=== PATIENT | female | born 1955 | race Caucasian/White ===

== ENCOUNTER 2016-10-05 09:03 | Inpatient (IN) | payer OTHER ==
[~2016-10-05] VITALS: Ht 165.1 cm; Wt 115.8 kg
[~2016-10-05 09:03] MED LIST: ALTOPREV10 MG PO; AMLODIPINE BESYL5 M1 PO; ANT12.5 PO; BAY PO; CLONIDINE HCL0.1 MG PO; COZAAR100 MG PO; CYCLOBENZAPRINE10 MG PO; DYA PO; FUROSEMIDE40 MG PO; GLIPIZIDE10 M PO; GLU10XL PO; HUMULOG; INSULIN LANTUS; KLOR-CON M1010 MEQ; LAC PO; LIPI20 PO; LORAZEPAM0.5 MG PO; MAC100 PO; METFORMIN HCL500 MG PO; METFORMIN1000 MG PO; METOPROLOL SUCC50 M2 PO; MEV20 PO; NASINH; OMEPRAZOLE DR20 M1 PO; OXYCODONE/ACETA1 TAB PO; PRE30 PO; PRI20 PO; SERTRALINE HYDR50 M1 PO; TRA50 PO; ZES10 PO; ZIT250 PO; [UNRECOGNIZED DRUG - CODE]
[2016-10-05 10:13] LABS: BASOPHIL % 0.4 % (0-2); PLATELET COUNT 257 x10^3mcL (130-400)
[2016-10-05 10:23] LABS: CALCIUM 10.3 mg/dL (8.5-10.1); CARBON DIOXIDE 25.9 mmol/L (21-32); CREATININE SERUM 1.4 mg/dL (0.6-1.0); POTASSIUM SERUM 3.8 mmol/L (3.5-5.1)
[2016-10-05 10:29] LABS: RED CELL DISTRIBUTION WIDTH 18.7 % (11.5-14.5)
[2016-10-05 10:30] LABS: ALBUMIN 3.5 g/dL (3.4-5.0); BILIRUBIN TOTAL 0.4 mg/dL (0.20-1.00); PHOSPHOROUS 3.7 mg/dL (2.5-4.9); URIC ACID 12.7 mg/dL (2.6-6.0)
[2016-10-05 10:43] LABS: TOTAL PROTEIN, SERUM 8.5 g/dL (6.4-8.2)
[2016-10-05] MEDS ORDERED: CATAPRES0.1 MG PO (12:28)
[2016-10-05] MEDS ORDERED: LORAZEPAM0.5 MG PO (12:29)
[2016-10-05 13:39] LABS: T3 TOTAL 0.94 ng/mL
[2016-10-05 14:08] VITALS: BP 137/45
[2016-10-05 14:16] LABS: CHOLESTEROL/HDL RATIO 4.1
[2016-10-05 14:23] VITALS: BP 137/45
[2016-10-05 14:23] LABS: FREE T4 1.12 ng/dL (0.76-1.46); FREE THYROXINE INDEX 2.7 ug/dL (1.4-4.5); T4(THYROXINE) 8.1 ug/dL (4.7-13.3)
[2016-10-05 14:26] VITALS: Ht 165.1 cm; Wt 115.8 kg
[2016-10-05 14:52] LABS: microscopic required? NO
[2016-10-05 15:09] LABS: urine erythrocyte NEGATIVE (NEGATIVE)
[2016-10-05 15:22] LABS: AMPHETAMINE QUAL UR NONE DETECTED (NEG <=1000)
[2016-10-05 16:40] VITALS: BP 125/54
[2016-10-05 16:52] VITALS: BP 137/45
[2016-10-05 22:00] VITALS: BP 125/55
[2016-10-06 06:37] VITALS: BP 112/55
[2016-10-06 07:25] LABS: CALCIUM 9.8 mg/dL (8.5-10.1); CARBON DIOXIDE 29.5 mmol/L (21-32); CREATININE SERUM 1.5 mg/dL (0.6-1.0); MAGNESIUM 1.5 mg/dL (1.8-2.4); PHOSPHOROUS 4.2 mg/dL (2.5-4.9); POTASSIUM SERUM 4.5 mmol/L (3.5-5.1)
[2016-10-06 07:29] LABS: BASOPHIL % 0.5 % (0-2); PLATELET COUNT 233 x10^3mcL (130-400)
[2016-10-06 07:31] LABS: RED CELL DISTRIBUTION WIDTH 18.5 % (11.5-14.5)
[2016-10-06 09:40] VITALS: BP 122/59
[2016-10-06 14:00] VITALS: BP 107/52
[2016-10-06 17:08] VITALS: BP 109/55
[2016-10-06 21:44] VITALS: BP 132/60
[2016-10-07 05:38] VITALS: BP 127/68
[2016-10-07] MEDS ORDERED: INDOMETHACIN50 MG PO (09:19)
[2016-10-07 10:05] VITALS: BP 150/62
[2016-10-07] MEDS ORDERED: OMEPRAZOLE MAGN20 M1 PO (11:23)
[2016-10-07 11:41] VITALS: BP 150/62
[2016-10-07 14:03] VITALS: BP 143/72
[2016-10-07] MEDS ORDERED: NOR5 PO (16:20)
== END 2016-10-07 17:28 | disposition home or self-care (01) | DRG 205 ==
LOC: ED 09:03 → DU 12:27
PROVIDERS: Emergency Medicine; ADMIT Family Medicine
DX: E66.2 Morbid (severe) obesity with alveolar hypoventilation (principal); I50.43 Acute on chronic combined systolic (congestive) and diastolic (congestive) heart failure; N17.0 Acute kidney failure with tubular necrosis; E43 Unspecified severe protein-calorie malnutrition; I42.0 Dilated cardiomyopathy; Z68.41 Body mass index [BMI] 40.0-44.9, adult; E87.1 Hypo-osmolality and hyponatremia; I11.0 Hypertensive heart disease with heart failure; J44.9 Chronic obstructive pulmonary disease, unspecified; E11.65 Type 2 diabetes mellitus with hyperglycemia; E11.51 Type 2 diabetes mellitus with diabetic peripheral angiopathy without gangrene; E83.52 Hypercalcemia; I25.10 Atherosclerotic heart disease of native coronary artery without angina pectoris; D50.9 Iron deficiency anemia, unspecified; E78.2 Mixed hyperlipidemia; Z79.4 Long term (current) use of insulin; Z95.1 Presence of aortocoronary bypass graft
CPT/HCPCS: 80307; 83880; 84439; J0780; J1200; J1644; J1815; J1940; J3010; J7040; J7620; Q0092

== ENCOUNTER 2017-08-29 18:39 | Emergency (ER) | payer OTHER ==
[~2017-08-29] VITALS: Ht 165.1 cm; Wt 117.9 kg
[~2017-08-29 18:39] MED LIST changes: +CATAPRES0.1 MG PO; +INDOMETHACIN50 MG PO; +NOR5 PO; +OMEPRAZOLE MAGN20 M1 PO
[2017-08-29 18:47] VITALS: Ht 165.1 cm; Wt 117.9 kg
[2017-08-29 20:41] LABS: BASOPHIL % 0.2 % (0-2); PLATELET COUNT 258 x10^3mcL (130-400)
[2017-08-29 20:47] LABS: CALCIUM 9.7 mg/dL (8.5-10.1); CARBON DIOXIDE 26.5 mmol/L (21-32); CREATININE SERUM 1.5 mg/dL (0.6-1.0); POTASSIUM SERUM 3.9 mmol/L (3.5-5.1)
[2017-08-29 20:59] LABS: BILIRUBIN TOTAL 0.39 mg/dL (0.20-1.00); T4(THYROXINE) 6.9 ug/dL (4.7-13.3)
[2017-08-29 21:01] LABS: ALBUMIN 3.2 g/dL (3.4-5.0)
[2017-08-29 21:03] LABS: RED CELL DISTRIBUTION WIDTH 19.9 % (11.5-14.5)
[2017-08-29 21:04] LABS: microscopic required? NO
[2017-08-29 21:24] LABS: UA SPECIFIC GRAVITY <=1.005 (1.005-1.035); urine erythrocyte NEGATIVE (NEGATIVE)
[2017-08-29 21:38] LABS: AMPHETAMINE QUAL UR NONE DETECTED (NEG <=1000)
[2017-08-30 00:02] VITALS: BP 160/67
== END 2017-08-30 00:02 | disposition home or self-care (01) ==
LOC: ED 18:39
PROVIDERS: Emergency Medicine
DX: E11.65 Type 2 diabetes mellitus with hyperglycemia (principal); M79.604 Pain in right leg; M79.605 Pain in left leg; E66.01 Morbid (severe) obesity due to excess calories; E78.00 Pure hypercholesterolemia, unspecified; I45.10 Unspecified right bundle-branch block; I25.10 Atherosclerotic heart disease of native coronary artery without angina pectoris; M19.90 Unspecified osteoarthritis, unspecified site; I10 Essential (primary) hypertension; Z95.1 Presence of aortocoronary bypass graft; Z88.5 Allergy status to narcotic agent; Z79.84 Long term (current) use of oral hypoglycemic drugs; Z86.79 Personal history of other diseases of the circulatory system
CPT/HCPCS: 83880; J1100; J1815; J1885; J7030; Q0092

== ENCOUNTER 2018-04-08 13:33 | Inpatient (IN) | payer OTHER ==
[~2018-04-08] VITALS: Ht 160 cm; Wt 115.7 kg
[~2018-04-08 13:33] MED LIST changes: -NOR5 PO
[2018-04-08 13:37] VITALS: Ht 160 cm; Wt 115.7 kg
[2018-04-08 14:38] LABS: BASOPHIL % 0.4 % (0-2); PLATELET COUNT 250 x10^3mcL (130-400)
[2018-04-08 14:40] LABS: RED CELL DISTRIBUTION WIDTH 19.8 % (11.5-14.5)
[2018-04-08 14:44] LABS: CALCIUM 9.4 mg/dL (8.5-10.1); CREATININE SERUM 1.2 mg/dL (0.6-1.0); POTASSIUM SERUM 4.4 mmol/L (3.5-5.1)
[2018-04-08] MEDS ORDERED: TRESIBA FL100 UNIT/1 SQ (15:44)
[2018-04-08] MEDS ORDERED: AMLODIPINE BESYL5 M2 (15:45)
[2018-04-08] MEDS ORDERED: GLIPIZIDE10 M2 (15:45)
[2018-04-08] MEDS ORDERED: VICTOZA 3-0.6 MG/0.1 (15:45)
[2018-04-08 15:46] LABS: CHOLESTEROL/HDL RATIO 3.9; MAGNESIUM 1.8 mg/dL (1.8-2.4); PHOSPHOROUS 3.8 mg/dL (2.5-4.9)
[2018-04-08] MEDS ORDERED: METOPROLOL TAR100 MG (15:46)
[2018-04-08] MEDS ORDERED: ALLOPURINOL100 MG PO (15:46)
[2018-04-08] MEDS ORDERED: FUROSEMIDE40 MG PO (15:46)
[2018-04-08 15:47] LABS: T3 TOTAL 1.1 ng/mL
[2018-04-08] MEDS ORDERED: MECLIZINE HYD12.5 MG PO (15:47)
[2018-04-08] MEDS ORDERED: COZAAR100 MG PO (15:47)
[2018-04-08] MEDS ORDERED: K10 (15:47)
[2018-04-08] MEDS ORDERED: LIPI20 PO (15:47)
[2018-04-08] MEDS ORDERED: PROTONIX TR40 M1 PO (15:47)
[2018-04-08 15:48] LABS: FREE THYROXINE INDEX 2.9 ug/dL (1.4-4.5); T4(THYROXINE) 9.2 ug/dL (4.7-13.3)
[2018-04-08] MEDS ORDERED: LORAZEPAM0.5 MG PO (15:48)
[2018-04-08] MEDS ORDERED: NEU300 PO (15:48)
[2018-04-08 16:28] VITALS: BP 134/62
[2018-04-08 17:25] LABS: microscopic required? NO
[2018-04-08 17:52] LABS: urine erythrocyte NEGATIVE (NEGATIVE)
[2018-04-08 17:58] LABS: AMPHETAMINE QUAL UR NONE DETECTED (See below)
[2018-04-08 19:25] VITALS: BP 140/61
[2018-04-09 05:59] VITALS: BP 120/42
[2018-04-09 06:30] LABS: CALCIUM 8.9 mg/dL (8.5-10.1); CARBON DIOXIDE 27.1 mmol/L (21-32); CREATININE SERUM 1.3 mg/dL (0.6-1.0); MAGNESIUM 2.2 mg/dL (1.8-2.4); PHOSPHOROUS 3.4 mg/dL (2.5-4.9); POTASSIUM SERUM 4.6 mmol/L (3.5-5.1)
[2018-04-09 06:47] LABS: BASOPHIL % 0.3 % (0-2); PLATELET COUNT 220 x10^3mcL (130-400)
[2018-04-09 07:36] LABS: RED CELL DISTRIBUTION WIDTH 18.8 % (11.5-14.5)
[2018-04-09 08:53] VITALS: BP 135/60
[2018-04-09 12:17] VITALS: BP 140/50
[2018-04-09 16:26] VITALS: BP 113/48
[2018-04-09 20:36] VITALS: BP 126/57
[2018-04-10 05:20] VITALS: BP 123/44
[2018-04-10 06:36] LABS: BASOPHIL % 0.3 % (0-2); PLATELET COUNT 218 x10^3mcL (130-400)
[2018-04-10 06:51] LABS: RED CELL DISTRIBUTION WIDTH 19.5 % (11.5-14.5)
[2018-04-10 07:28] LABS: CALCIUM 9.2 mg/dL (8.5-10.1); CARBON DIOXIDE 23.7 mmol/L (21-32); CREATININE SERUM 1.3 mg/dL (0.6-1.0); MAGNESIUM 2.1 mg/dL (1.8-2.4); PHOSPHOROUS 3.5 mg/dL (2.5-4.9); POTASSIUM SERUM 5.2 mmol/L (3.5-5.1)
[2018-04-10 08:40] VITALS: BP 134/61
[2018-04-10 12:13] LABS: BILIRUBIN DIRECT 0.14 mg/dL (0.0-0.2); BILIRUBIN TOTAL 0.5 mg/dL (0.20-1.00); TOTAL PROTEIN, SERUM 7.6 g/dL (6.4-8.2)
[2018-04-10 12:17] LABS: ALBUMIN 3.1 g/dL (3.4-5.0)
[2018-04-10 14:21] VITALS: BP 130/62
[2018-04-10 16:33] VITALS: BP 133/41
[2018-04-10 18:48] VITALS: BP 178/73
[2018-04-10 19:30] VITALS: BP 147/54
[2018-04-11 05:42] VITALS: BP 149/49
[2018-04-11 07:00] LABS: PLATELET COUNT 210 x10^3mcL (130-400)
[2018-04-11 07:14] LABS: RED CELL DISTRIBUTION WIDTH 20.4 % (11.5-14.5)
[2018-04-11 07:43] LABS: CALCIUM 9.6 mg/dL (8.5-10.1); CARBON DIOXIDE 23.1 mmol/L (21-32); CREATININE SERUM 1.3 mg/dL (0.6-1.0); POTASSIUM SERUM 4.5 mmol/L (3.5-5.1)
[2018-04-11 08:30] VITALS: BP 149/49
[2018-04-11 09:04] VITALS: BP 131/40
[2018-04-11 13:27] LABS: MONOCYTE 10 % (0-7); SEGMENTED NEUTROPHILS 74 % (37-75)
[2018-04-11 13:28] LABS: rbc morphology (normal/abnorm) NORMAL (NORMAL)
[2018-04-11 13:29] LABS: PLATELET MORPHOLOGY PLATELETS DECREASED
[2018-04-11 17:36] VITALS: BP 130/43
[2018-04-11 20:55] VITALS: BP 160/55
[2018-04-11 23:56] VITALS: BP 137/56
[2018-04-12 05:16] VITALS: BP 123/49
[2018-04-12 08:38] VITALS: BP 123/43
[2018-04-12 09:45] LABS: BASOPHIL % 0.3 % (0-2); PLATELET COUNT 194 x10^3mcL (130-400)
[2018-04-12 09:47] LABS: RED CELL DISTRIBUTION WIDTH 20.3 % (11.5-14.5)
[2018-04-12 09:52] LABS: CARBON DIOXIDE 23.8 mmol/L (21-32); CREATININE SERUM 2.8 mg/dL (0.6-1.0); POTASSIUM SERUM 4.2 mmol/L (3.5-5.1)
[2018-04-12 13:16] VITALS: BP 152/62
[2018-04-12 15:38] LABS: microscopic required? YES; urine erythrocyte NEGATIVE (NEGATIVE)
[2018-04-12 16:22] VITALS: BP 113/46
[2018-04-12 21:57] VITALS: BP 132/55
[2018-04-13 05:45] VITALS: BP 116/52
[2018-04-13 06:29] LABS: CALCIUM 9.5 mg/dL (8.5-10.1); CARBON DIOXIDE 23.1 mmol/L (21-32); CREATININE SERUM 1.4 mg/dL (0.6-1.0); POTASSIUM SERUM 4.2 mmol/L (3.5-5.1)
[2018-04-13 06:33] LABS: BASOPHIL % 0.3 % (0-2); PLATELET COUNT 208 x10^3mcL (130-400)
[2018-04-13 07:08] LABS: RED CELL DISTRIBUTION WIDTH 20.4 % (11.5-14.5)
[2018-04-13 09:42] VITALS: BP 128/52
[2018-04-13 09:58] LABS: IRON 19 ug/dL (50-170); TOTAL IRON BINDING CAPACITY 215 ug/dL (250-450)
[2018-04-13 13:47] VITALS: BP 137/49
[2018-04-13 17:23] VITALS: BP 108/36
[2018-04-13 21:19] VITALS: BP 140/64
[2018-04-14 05:48] VITALS: BP 146/55
[2018-04-14 06:44] LABS: BASOPHIL % 0.4 % (0-2); PLATELET COUNT 266 x10^3mcL (130-400)
[2018-04-14 06:45] LABS: RED CELL DISTRIBUTION WIDTH 20.2 % (11.5-14.5)
[2018-04-14 07:17] LABS: CALCIUM 9.2 mg/dL (8.5-10.1); CARBON DIOXIDE 24.3 mmol/L (21-32); CREATININE SERUM 1.4 mg/dL (0.6-1.0); POTASSIUM SERUM 4.3 mmol/L (3.5-5.1)
[2018-04-14 07:37] VITALS: BP 143/59
[2018-04-14 08:57] LABS: ovalocyte/elliptocyte 1+; rbc morphology (normal/abnorm) ABNORMAL (NORMAL); tear drop cell (dacryocyte) 1+
[2018-04-14 11:22] VITALS: BP 126/71
[2018-04-14 12:06] VITALS: BP 147/53
[2018-04-14 20:44] VITALS: BP 118/43
[2018-04-15 06:09] VITALS: BP 120/54
[2018-04-15 07:46] LABS: BASOPHIL % 0.4 % (0-2); PLATELET COUNT 269 x10^3mcL (130-400)
[2018-04-15 07:47] LABS: RED CELL DISTRIBUTION WIDTH 20.3 % (11.5-14.5)
[2018-04-15 07:48] LABS: rbc morphology (normal/abnorm) ABNORMAL (NORMAL)
[2018-04-15 07:49] LABS: ovalocyte/elliptocyte 1+; tear drop cell (dacryocyte) 1+
[2018-04-15 08:01] LABS: CALCIUM 9.1 mg/dL (8.5-10.1); CARBON DIOXIDE 25.2 mmol/L (21-32); CREATININE SERUM 1.3 mg/dL (0.6-1.0); POTASSIUM SERUM 4.5 mmol/L (3.5-5.1)
[2018-04-15 08:07] VITALS: BP 75/51
[2018-04-15 10:09] VITALS: BP 128/44
[2018-04-15 10:56] VITALS: BP 144/39
[2018-04-15] MEDS ORDERED: COZ50 PO (13:44)
[2018-04-15] MEDS ORDERED: AUGMENTIN 875-1 EACH PO (13:45)
[2018-04-15] MEDS ORDERED: VENTOLIN H0.09 MG/A1 INH (13:45)
[2018-04-15] MEDS ORDERED: NOR5 PO (14:45)
[2018-04-15 14:49] VITALS: BP 144/39
== END 2018-04-15 16:27 | disposition home or self-care (01) | DRG 177 ==
LOC: ED 13:33 → MU 15:02 → DU 15:02 → MU 16:17 → DU 17:46
PROVIDERS: Emergency Medicine; Family Medicine; Internal Medicine; Internal Medicine Gastroenterology
PROC: 0DBG8ZX Excision of Left Large Intestine, Via Natural or Artificial Opening Endoscopic, Diagnostic (ICD-10-PCS; 2018-04-14)
PROC: 0DB78ZX Excision of Stomach, Pylorus, Via Natural or Artificial Opening Endoscopic, Diagnostic (ICD-10-PCS; principal; 2018-04-14 08:30)
PROC: 0DBH8ZX Excision of Cecum, Via Natural or Artificial Opening Endoscopic, Diagnostic (ICD-10-PCS; 2018-04-14 08:30)
PROC: 0DBL8ZX Excision of Transverse Colon, Via Natural or Artificial Opening Endoscopic, Diagnostic (ICD-10-PCS; 2018-04-14 08:30)
DX: J69.0 Pneumonitis due to inhalation of food and vomit (principal); J96.01 Acute respiratory failure with hypoxia; N17.0 Acute kidney failure with tubular necrosis; E44.1 Mild protein-calorie malnutrition; Z68.41 Body mass index [BMI] 40.0-44.9, adult; E11.42 Type 2 diabetes mellitus with diabetic polyneuropathy; E11.649 Type 2 diabetes mellitus with hypoglycemia without coma; I25.10 Atherosclerotic heart disease of native coronary artery without angina pectoris; I12.9 Hypertensive chronic kidney disease with stage 1 through stage 4 chronic kidney disease, or unspecified chronic kidney disease; N18.3 Chronic kidney disease, stage 3 (moderate); E78.5 Hyperlipidemia, unspecified; G47.33 Obstructive sleep apnea (adult) (pediatric); K31.7 Polyp of stomach and duodenum; E66.01 Morbid (severe) obesity due to excess calories; M19.90 Unspecified osteoarthritis, unspecified site; Z95.1 Presence of aortocoronary bypass graft; Z79.84 Long term (current) use of oral hypoglycemic drugs
CPT/HCPCS: 43235; 45378; 82962; 83880; 84439; 90658; 94150; 97110-GP; 97116-GP; 97530-GP; J1200; J1610; J1940; J2250; J2310; J2405; J2543; J3010; J3475; J3490; J7030; J7040; J7620; J8597; Q0092

== ENCOUNTER 2019-01-10 13:02 | Inpatient (IN) | payer OTHER ==
[~2019-01-10] VITALS: Ht 165.1 cm; Wt 125.8 kg
[~2019-01-10 13:02] MED LIST changes: +ALLOPURINOL100 MG PO; +AMLODIPINE BESYL5 M2; +AUGMENTIN 875-1 EACH PO; +COZ50 PO; +GLIPIZIDE10 M2; +K10; +MECLIZINE HYD12.5 MG PO; +METOPROLOL TAR100 MG; +NEU300 PO; +NOR5 PO; +PROTONIX TR40 M1 PO; +TRESIBA FL100 UNIT/1 SQ; +VENTOLIN H0.09 MG/A1 INH; +VICTOZA 3-0.6 MG/0.1
[2019-01-10 13:35] LABS: PLATELET COUNT 238 x10^3mcL (130-400)
[2019-01-10 13:40] LABS: CALCIUM 10.2 mg/dL (8.5-10.1); CARBON DIOXIDE 25.7 mmol/L (21-32); CREATININE SERUM 1.5 mg/dL (0.6-1.0); POTASSIUM SERUM 4.4 mmol/L (3.5-5.1)
[2019-01-10 13:42] LABS: RED CELL DISTRIBUTION WIDTH 20.9 % (11.5-14.5)
[2019-01-10 13:51] LABS: ALBUMIN 3.4 g/dL (3.4-5.0); ATYPICAL LYMPH 1 %; BAND NEUTROPHIL 0 % (0-10); BASOPHIL 0 % (0-2); BILIRUBIN TOTAL 0.41 mg/dL (0.20-1.00); MONOCYTE 7 % (0-7); SEGMENTED NEUTROPHILS 80 % (37-75)
[2019-01-10 13:52] LABS: PLATELET MORPHOLOGY PLATELETS NORMAL; rbc morphology (normal/abnorm) ABNORMAL (NORMAL)
[2019-01-10 13:54] LABS: TOTAL PROTEIN, SERUM 8.3 g/dL (6.4-8.2)
--- NOTE | 2019-01-10 14:24 | NUR ---
DR TIWARI AT BEDSIDE FOR MSE.
[2019-01-10] MEDS ORDERED: METFORMIN HYDR500 M1 (15:51)
[2019-01-10] MEDS ORDERED: METOLAZONE2.5 M1 (15:51)
[2019-01-10] MEDS ORDERED: GLIPIZIDE XL10 M1 (15:55)
[2019-01-10] MEDS ORDERED: HUMALOG200 U/ML (15:56)
[2019-01-10] MEDS ORDERED: VICTOZA6 MG/M1 (15:56)
[2019-01-10] MEDS ORDERED: GABAPENTIN300 M4 (15:57)
[2019-01-10] MEDS ORDERED: ALLOPURINOL100 MG (15:57)
[2019-01-10] MEDS ORDERED: LORAZEPAM0.5 MG (15:57)
--- NOTE | 2019-01-10 16:33 | NUR ---
REPORT GIVEN TO ARLETH BROWN TO ASSUME CARE OF THE PT.
--- NOTE | 2019-01-10 16:45 | NUR ---
RECEIVED PT FROM ED VIA [employer] [facility], CAME IN DUE TO SOB. AAOX4. DENIES HEADACHE/DIZZINESS. ABLE TO FOLLOW COMMANDS. NO SOB NOTED, LUNG SOUNDS DIMINISHED ON AUSCULTATION, O2 SAT-98% ON 3LPM/NC. DENIES CHEST PAIN/PRESSURE, SR W/ BBB ON THE MONITOR. DENIES ABDOMINAL DISCOMFORT. C/O RLE NUMBNESS AND 10/10 PAIN ON BLE WHEN TOUCHED. WEAK PEDAL PULSES. IV SITE PATENT AND INTACT. SIDE RAILS UPX2. CALL LIGHT ON REACH. PRIMARY NURSE CHELA AT BEDSIDE FOR CONTINUITY OF CARE
[2019-01-10 16:57] VITALS: BP 132/48
[2019-01-10 16:59] LABS: MAGNESIUM 1.4 mg/dL (1.8-2.4); PHOSPHOROUS 4.1 mg/dL (2.5-4.9)
[2019-01-10 17:00] LABS: CHOLESTEROL/HDL RATIO 3.6
[2019-01-10 17:04] VITALS: Ht 165.1 cm; Wt 125.8 kg
[2019-01-10 17:45] VITALS: BP 132/48
--- NOTE | 2019-01-10 18:13 | NUR ---
PT GETTING US ARTERIAL OF LOWER EXTREMITIES DONE AT THIS TIME. NO ACUTE DISTRESS. RESTING IN BED. CALL LIGHT WITHIN REACH. WILL CONTINUE TO MONITOR.
--- NOTE | 2019-01-10 19:37 | NUR ---
RECEIVED PT FROM PREVIOUS SHIFT. PT A/OX4. DENIES PAIN. DENIES SOB ON 3LNC. IV PATENT, INFUSING NS AT 50ML/HR WITH NO S/S OF INFILTRATION. CALL LIGHT WITHIN REACH, BED IN LOW POSITION. WILL CONTINUE TO MONITOR.
[2019-01-10 20:12] LABS: microscopic required? NO
[2019-01-10 20:13] VITALS: BP 136/53
[2019-01-10 20:24] LABS: urine erythrocyte NEGATIVE (NEGATIVE)
[2019-01-10 20:44] LABS: AMPHETAMINE QUAL UR NONE DETECTED (See below)
--- NOTE | 2019-01-11 01:49 | NUR ---
PT RESTING IN NO ACUTE DISTRESS. RR EVEN AND UNLABORED. IV PATENT. CALL LIGHT WITHIN REACH, BED IN LOW POSITION. WILL CONTINUE TO MONITOR.
[2019-01-11 06:11] VITALS: BP 117/48
[2019-01-11 06:25] LABS: BASOPHIL % 0.3 % (0-2); PLATELET COUNT 230 x10^3mcL (130-400)
[2019-01-11 06:43] LABS: CALCIUM 10.4 mg/dL (8.5-10.1); CARBON DIOXIDE 25.6 mmol/L (21-32); CREATININE SERUM 1.2 mg/dL (0.6-1.0); MAGNESIUM 1.4 mg/dL (1.8-2.4); PHOSPHOROUS 3.9 mg/dL (2.5-4.9); POTASSIUM SERUM 4.4 mmol/L (3.5-5.1)
[2019-01-11 07:03] LABS: RED CELL DISTRIBUTION WIDTH 19.8 % (11.5-14.5)
--- NOTE | 2019-01-11 07:48 | NUR ---
AT 0710 - RECEIVED PATIENT FROM NIGHT NURSE. SLEEPING. RESPIRATIONS REGULAR. IV INFUSING NS AT 50 ML/HR. AT 0740 - PATIENT AWAKE. ALERT AND ORIENTED. REPORTS PERSISTANT PRESSURE-LIKE PAIN OF CHEST 2/10. ON O2 VIA NC AT 3L. PATIENT USES HOME O2. SAT ON SIDE OF BED FOR BREAKFAST.
--- NOTE | 2019-01-11 12:11 | NUR ---
PATIENT SLEPT FOR GREATER PART OF MORNING. HAD SPOKE WITH DR TANG EARLIER PATIENT WAS ASKING WHY SHE IS NOT RECEIVING ANY ORAL HYPOGLYCEMIC MEDS (GLIPEZIDE AND VICTOZA). PER DOCTOR, PATIENT TO BE ON SLIDING SCALE ONLY DURING HOSPITAL STAY. ALSO INFORMED DR REGARDING PATIENT'S LOW MG LEVEL OF 1.4. PATIENT IS ALREADY ON MG OXIDE PO. PER DR, NO ADDITIONAL TREATMENT REQUIRED. LAST BLOOD GLUCOSE LEVEL 354. GIVEN 15 UNITS REGULAR INSULIN PER SLIDING SCALE.
[2019-01-11 12:26] VITALS: BP 119/47
--- NOTE | 2019-01-11 14:30 | NUR ---
RECHECKED BLOOD GLUCOSE PER INSTRUCTIONS FROM DR TANG.CURRENTLY 337. RECEIVED ORDERS TO GIVEN LANTUS 10 UNITS NOW. PATIENT HAS BEEN SEEN BY DR BERTRAND. STATUS CHANGED TO MED-SURG AND PATIENT TAKEN OFF CARIDAC MONITORING.
[2019-01-11 16:35] VITALS: BP 138/55
--- NOTE | 2019-01-11 17:21 | NUR ---
LAST BLOOD SUGAR 342. GIVEN REGULAR INSULIN 12 UNITS PER SLIDING SCALE. PATIENT WATCHING TV. RESPIRATIONS REGULAR. NO C/O PAIN OR SOB.
--- NOTE | 2019-01-11 18:23 | NUR ---
VSS. NO C/O CHEST PAIN . IV INFUSING NS AT 50 ML/HR. AMBULATES TO BATHROOM FOR TOILET NEEDS. WILL ENDORSE CARE TO NIGHT NURSE.
--- NOTE | 2019-01-11 19:03 | NUR ---
IV INFUSION OF NS REDUCED TO 20 ML/HR PER NEW ORDERS.
--- NOTE | 2019-01-11 19:40 | NUR ---
REC'D PT FROM DAY NURSE. PT RESTING IN BED. AAOX4, SPEECH CLEAR, FOLLOWS COMMANDS. MED SURG, NO TELE. DENIES CP, DIZZINESS, OR PALPITATIONS. DENIES RESP DISTRESS OR SOB. BREATHING EVEN/UNLABORED ON 2L O2 VIA NC, SPO2 97%. C/O SCRATCHY THROAT AND CONGESTED COUGH. PT REQUESTING REBEKA, DR. CABRAL MADE AWARE. RT PROTOCOL. PITTING EDEMA BLE, ELEVATED WITH PILLOWS. ABD SOFT/OBESE. DENIES ABD PAIN, TENDERNESS, OR N/V. VOIDING FREELY. IV TO RFA PATENT AND INFUSING, SITE WNL. CALL LIGHT WITHIN REACH, BED AT LOWEST POSITION. WILL CONTINUE TO MONITOR.
[2019-01-11 21:13] VITALS: BP 157/65
--- NOTE | 2019-01-11 21:26 | NUR ---
PT C/O THROAT PAIN. CEPACOL AND TYLENOL GIVEN PER ORDER.
--- NOTE | 2019-01-12 01:25 | NUR ---
PT RESTING IN BED WITH EYES CLOSED. LAYING ON L SIDE. NO SIGNS OF DISTRESS OR PAIN NOTED. BREATHING EVEN/UNLABORED ON 2L O2 VIA NC. CALL LIGHT WITHIN REACH, BED AT LOWEST POSITION. WILL CONTINUE TO MONITOR.
--- NOTE | 2019-01-12 03:03 | NUR ---
PT C/O SOME SOB. RESPIRATIONS APPEAR UNLABORED AND SYMMETRIC. RR 20. SPO2 96% ON 2L O2 VIA NC. ALSO C/O SORE THROAT. CEPACOL GIVEN PER ORDER. RT NOTIFIED AND AT BEDSIDE TO GIVE BREATHING TREATMENT. WILL CONTINUE TO MONITOR.
--- NOTE | 2019-01-12 03:27 | NUR ---
PT AWAKE AND LAYING IN BED. REPORTS FEELING BETTER S/P TREATMENT. RESPIRATIONS EVEN/UNLABORED ON 2L NC. WILL CONTINUE TO MONITOR.
[2019-01-12 05:37] VITALS: BP 132/56
--- NOTE | 2019-01-12 05:50 | NUR ---
PT AWAKE AND RESTING IN BED. BREATHING EVEN/UNLABORED ON 2L O2 VIA NC. DENIES SOB AT THIS TIME. C/O 5/10 SORE THROAT. TYLENOL GIVEN PER ORDER. PT REPORTS SHE HAD A BLOODY NOSE LAST NIGHT. RT NOTIFIED TO ADD HUMIDIFIER.
[2019-01-12 06:34] LABS: BASOPHIL % 0.4 % (0-2); PLATELET COUNT 201 x10^3mcL (130-400)
--- NOTE | 2019-01-12 06:36 | NUR ---
PT REPORTS RELIEF S/P TYLENOL. STATES HER THROAT DOES NOT HURT MUCH. ALSO STATES NOSE "FEELS BETTER" WITH HUMIDIFIER ON.
[2019-01-12 06:38] LABS: RED CELL DISTRIBUTION WIDTH 19.8 % (11.5-14.5)
[2019-01-12 06:53] LABS: CALCIUM 10.3 mg/dL (8.5-10.1); CARBON DIOXIDE 26.4 mmol/L (21-32); CREATININE SERUM 1.2 mg/dL (0.6-1.0); MAGNESIUM 1.6 mg/dL (1.8-2.4); PHOSPHOROUS 3.8 mg/dL (2.5-4.9); POTASSIUM SERUM 4.1 mmol/L (3.5-5.1)
--- NOTE | 2019-01-12 07:30 | NUR ---
PATIENT RESTING IN BED, NO ACUTE DISTRESS NOTED. PATIENT DENIES SOB, ON 2L NC. PATIENT DENIES PAIN. MILD GENERALIZED WEAKNESS NOTED. PATIENT C/O SORE THROAT.NS IV INFUSING TO RFA AT 20ML/HR, NO S/S OF INFILTRATION. CALL LIGHT WITHIN REACH, BED IN LOW POSITION WILL CONTINUE TO MONITOR.
--- NOTE | 2019-01-12 09:00 | NUR ---
PATIENT AMBULATED TO THE BATHROOM AT THIS TIME. PATIENT C/O MILD SOB ON EXERTION. PATIENT AWARE TO NOTIFY ME, IF SOB OCCURS. ASSISTED PATIENT IN ELEVATING BLE, TO DECREASE SWELLING. ALL MEDICATIONS GIVEN, PATIENT TOLERATED PO MEDS. CALL LIGHT WITHIN REACH.
[2019-01-12 13:37] VITALS: BP 131/53
--- NOTE | 2019-01-12 14:58 | NUR ---
PATIENT RESTING IN BED, WATCHING TV. PATIENT DENIES SOB, ON 2L NC. PATIENT C/O OF DISCOMFORT TO THROAT, BUT IS TOLERABLE AT THIS TIME. CALL LIGHT WITHIN REACH, WILL CONTINUE TO MONITOR.
--- NOTE | 2019-01-12 16:20 | NUR ---
PATIENT WAS DISCHARGE HOME, FAMILY AT BEDSIDE. ASSESSED BLOOD GLUCOSE PRIOR TO D/C, BLOOD SUGAR WAS 416, COVERED PATIENT WITH 18U OF HUMULIN R. PATIENT UNDERSTANDS TO EAT AFTER INSULIN GIVEN, PROVIDED PATIENT WITH SANDWICH, AND JUICE UPON D/C. PATIENT RECEIVED COPY OF D/C INSTRUCTION, PATIENT UNDERSTANDS AND AGREES WITH D/C INSTRUCTIONS & PLAN OF CARE, INCLUDING MEDICATIONS & FOLLOW UP WITH PCP. ALL QUESTIONS AND CONCERN ADDRESSED. ARMBANDS REMOVED. IV TO RFA REMOVED, CATH INTACT. PATIENT TAKEN DOWN VIA WHEELCHAIR BY BRAND RECORDER, PATIENT BROUGHT OXYGEN FROM HOME, PATIENT ON 2L NC.
== END 2019-01-12 16:18 | disposition home or self-care (01) | DRG 205 ==
LOC: ED 13:02 → DU 15:57 → MU 15:57 → DU 16:40 → MU 01-11 14:25
PROVIDERS: ADMIT Internal Medicine
DX: M94.0 Chondrocostal junction syndrome [Tietze] (principal); N17.0 Acute kidney failure with tubular necrosis; I13.0 Hypertensive heart and chronic kidney disease with heart failure and stage 1 through stage 4 chronic kidney disease, or unspecified chronic kidney disease; I50.32 Chronic diastolic (congestive) heart failure; J96.10 Chronic respiratory failure, unspecified whether with hypoxia or hypercapnia; Z68.42 Body mass index [BMI] 45.0-49.9, adult; K21.9 Gastro-esophageal reflux disease without esophagitis; J44.9 Chronic obstructive pulmonary disease, unspecified; E11.22 Type 2 diabetes mellitus with diabetic chronic kidney disease; E11.65 Type 2 diabetes mellitus with hyperglycemia; N18.3 Chronic kidney disease, stage 3 (moderate); I25.10 Atherosclerotic heart disease of native coronary artery without angina pectoris; E78.5 Hyperlipidemia, unspecified; Z95.1 Presence of aortocoronary bypass graft; Z99.81 Dependence on supplemental oxygen; Z79.84 Long term (current) use of oral hypoglycemic drugs
CPT/HCPCS: 82962; 83880; 94150; 97116-GP; 97530-GP; G0378; J1644; J1815; J1940; J7030; J7620; Q0092

== ENCOUNTER 2019-02-27 06:02 | Emergency (ER) | payer OTHER ==
[~2019-02-27] VITALS: Ht 152.4 cm; Wt 127.0 kg
[~2019-02-27 06:02] MED LIST changes: +ALLOPURINOL100 MG; +GABAPENTIN300 M4; +GLIPIZIDE XL10 M1; +HUMALOG200 U/ML; +LORAZEPAM0.5 MG; +METFORMIN HYDR500 M1; +METOLAZONE2.5 M1; +VICTOZA6 MG/M1
[2019-02-27 06:07] VITALS: Ht 152.4 cm; Wt 127.0 kg
[2019-02-27 07:06] LABS: CALCIUM 10.1 mg/dL (8.5-10.1); CARBON DIOXIDE 28.4 mmol/L (21-32); CREATININE SERUM 1.1 mg/dL (0.6-1.0); POTASSIUM SERUM 3.6 mmol/L (3.5-5.1)
[2019-02-27 07:10] LABS: BASOPHIL % 0.4 % (0-2); BILIRUBIN TOTAL 0.43 mg/dL (0.20-1.00); PLATELET COUNT 211 x10^3mcL (130-400); TOTAL PROTEIN, SERUM 7.7 g/dL (6.4-8.2)
[2019-02-27 07:16] LABS: ALBUMIN 3.1 g/dL (3.4-5.0)
[2019-02-27 07:23] LABS: RED CELL DISTRIBUTION WIDTH 20.5 % (11.5-14.5)
[2019-02-27 07:56] LABS: rbc morphology (normal/abnorm) ABNORMAL (NORMAL)
[2019-02-27 08:38] LABS: microscopic required? YES; urine erythrocyte TRACE (NEGATIVE)
[2019-02-27 09:17] VITALS: BP 122/54
== END 2019-02-27 09:17 | disposition home or self-care (01) ==
LOC: ED 06:02
PROVIDERS: Emergency Medicine
DX: E11.9 Type 2 diabetes mellitus without complications (principal); I10 Essential (primary) hypertension; Z95.1 Presence of aortocoronary bypass graft; Z88.1 Allergy status to other antibiotic agents; Z88.5 Allergy status to narcotic agent
CPT/HCPCS: 36415; 82962

== ENCOUNTER 2020-08-18 14:51 | Emergency (ER) | payer OTHER ==
[~2020-08-18] VITALS: Ht 165.1 cm; Wt 127.0 kg
[2020-08-18 14:58] VITALS: Ht 165.1 cm; Wt 127.0 kg
[2020-08-18 17:07] LABS: CALCIUM 10.3 mg/dL (8.5-10.1); CARBON DIOXIDE 24.6 mmol/L (21-32); CREATININE SERUM 1.3 mg/dL (0.6-1.0); POTASSIUM SERUM 4.9 mmol/L (3.5-5.1)
[2020-08-18 17:13] LABS: BILIRUBIN TOTAL 0.3 mg/dL (0.20-1.00); TOTAL PROTEIN, SERUM 7.8 g/dL (6.4-8.2)
[2020-08-18 17:29] LABS: BASOPHIL % 0.8 % (0.2-1.3); PLATELET COUNT 184 x10^3mcL (179-408)
[2020-08-18 17:31] LABS: RED CELL DISTRIBUTION WIDTH 19.7 % (12.3-17.7)
[2020-08-18] MEDS ORDERED: ULTRAM50 MG PO (18:37)
[2020-08-18 19:09] VITALS: BP 135/79
== END 2020-08-18 19:09 | disposition home or self-care (01) ==
LOC: ED 14:51
PROVIDERS: Emergency Medicine
DX: S73.101A Unspecified sprain of right hip, initial encounter (principal); E11.22 Type 2 diabetes mellitus with diabetic chronic kidney disease; I12.9 Hypertensive chronic kidney disease with stage 1 through stage 4 chronic kidney disease, or unspecified chronic kidney disease; N18.9 Chronic kidney disease, unspecified; M19.90 Unspecified osteoarthritis, unspecified site; Z88.5 Allergy status to narcotic agent; Z88.8 Allergy status to other drugs, medicaments and biological substances; X58.XXXA Exposure to other specified factors, initial encounter; Y93.89 Activity, other specified; Y92.89 Other specified places as the place of occurrence of the external cause; Y99.8 Other external cause status
CPT/HCPCS: 83880